=== PATIENT | female | born 1980 | race Caucasian/White ===

== ENCOUNTER 2023-09-21 13:50 | Outpatient (CLI) | payer BC ==
--- NOTE | 2023-09-21 14:29 | SLEEP CARE CONSULTATION ---
Information from patient questionnaire entered by Penelope Rosa. I have reviewed and concur with the information entered by Penelope Rosa. This document represents the service I personally performed and the decisions made by me, Ronald Rosas MD, [facility]. History of Present Illness Service Date and Time: 09/21/2023 1350 Reason for Visit: New patient Chief Complaint: reports: Unrefreshed sleep, Snoring, Excessive daytime sleepiness, Fatigue, Frequent awakenings at night Date of Onset: 2022 Usual bedtime: 7651-3416 Time it takes to fall asleep: 30MINS Snores at night: Yes Observed to quit breathing while asleep: No Sleeps alone due to snoring: No Number of times waking at night: 1-5 Reasons for waking at night: reports: Choking, Bathroom Toss, Turn, or Twitch while sleeping: Yes Recalls having dreams: No Usually gets out of bed at: [id number] Feels refreshed in the morning: No Morning headache: Yes Sleepy or fatigued during the day: Yes Ever fallen asleep while driving: Yes Takes day naps: Yes Dreams during day naps: Yes Prior sleep studies: No Additional HPI information: I have the pleasure of seeing Ms. Roque today regarding the possibility of her having obstructive sleep apnea. As you know, she is a 43-year-old lady who complains of loud snore, frequent awakenings, unrefreshed sleep, persistent fatigue, and excessive daytime sleepiness. The patient tells me that she normally goes to bed around 11 pm - midnight, and it takes her approximately 30 minutes to fall asleep. She has been told that she snores loudly and irregularly at night. She has never been observed to stop breathing in her sleep. Her sleeps in the same bed. He uses a CPAP. She can recall waking up on the average of 1 - 5 times during the night. Most of the time she wakes up because of having to use the bathroom. She has awakened occasionally because of her own snoring, choking, and having to gasp for air. There is a lot of tossing and turning in her sleep. She has somniloquy (sleep talking) but not somnambulism (sleepwalking). Generally, there is no recollection of dreams. In the morning she usually gets up out of the bed around 7 a.m. not feeling refreshed nor rested. She usually has a morning headache. During the day she complains of feeling sleepy and fatigued. Her score on [place] Sleepiness Scale is 15 out of 24. She has fallen asleep while driving and has gone out of the faith. She usually takes naps during the day. She denies having impaired concentration during the day. - Parasomnia Symptoms Ever been unable to move upon waking from sleep: No Walks in sleep: No Talks in sleep: Yes Ever acted out dreams in sleep: Yes Ever felt weak in the knees when startled or emotional: No Bothered by creepy, crawly, restless sensations in legs: No Problems with memory or concentration: No Subjective Initial [place] Sleepiness Scale score: 15 (09/21/23) Past Medical History Past Medical History: reports: GERD Social History The patient's occupation is a [employer]. Patient is and lives in [place]. Have you smoked in the past 12 months: No Alcohol use: Yes Alcohol amount and frequency: 1GLASS 2-3X YRS Caffeine use: Yes Caffeine amount and frequency: 3-5 CANS 4XWEEK Family History Family history of sleep disordered breathing: Yes Family Hx Sleep Apnea: Mother: Sleep apnea - Treated, Father: Snoring, Sleep apnea - Treated, Grandparent: Snoring, Sleep apnea - Treated Allergies and Home Medications Known drug allergies: Yes ( LISTED) Drug allergies reviewed: Yes Home medication list reviewed: Yes Review of Systems Weight gain over past 5 years: 60 Cardiovascular: reports: leg or foot swelling Respiratory: denies: shortness of breath, wheeze, sputum production, chronic cough, other Gastrointestinal: reports: heartburn Urinary: reports: incontinence Neurological: reports: headaches Psychiatric: denies: Attention Deficit Hyperactivity, anxiety, depression, mood disorder, claustrophobia, other Ear/Nose/Throat: denies: nasal congestion, sinus problems, nose bleeds, dry mouth/throat, hoarseness, injury to nose, tonsillectomy, wisdom teeth removed, other Endocrine: denies: thyroid disease, history of goiter, sluggishness, too hot or cold, excessive thirst, increased appetite, increased urination, unexplained weakness, other Musculoskeletal: denies: joint pain, neck pain, back pain, joint swelling, muscle pain or cramping, mobility problems, other Immunologic: denies: sneezing, rash, itching, allergies to food or environment, other Physical Exam Vital signs obtained and entered by: PENELOPE Canales MA Blood Pressure: 163/93 (LEFT ) Cuff size: wrist Heart Rate: 97 O2 Saturation: 96 Height: 5 ft 3 in Weight: 347 lb 3.2 oz Body Mass Index: 61.4 BMI Classification: Morbidly Obese Neck circumference: 20 Mood/affect: Normal HEENT: No craniofacial malformation Nostrils: patent to airflow Turbinates: normal Septum: midline Mouth and throat: narrow oropharynx Soft palate: long Hard palate: normal Uvula: normal Uvula visualization: 0% Mallampati Class IV Tongue: normal in size Tonsils: absent bilaterally Chin and jaw: normal size and position Neck: normal w/o lymphadenopathy or thyromegaly Heart: regular rate and rhythm Lungs: clear bilaterally Extremities: no edema or clubbing Neurologic: intact Impression and Plan IMPRESSION: 1. Obstructive Sleep Apnea-Hypopnea Syndrome, as evident by history of loud and irregular snoring, frequent awakenings during the night, unrefreshed sleep, and daytime hypersomnolence. Narrow oropharynx and obesity are common predisposing factors for obstructive sleep apnea-hypopnea syndrome. I recommend proceeding to polysomnography to confirm the diagnosis and to assess severity. If she has significant sleep disordered breathing, a manual CPAP titration study will also be performed to find the optimal treatment pressure. I informed the patient of what the sleep studies involve and after some discussion, she agreed to proceed. Plan: 1. Schedule in-laboratory polysomnography. 2. Avoid long distance driving or when feeling sleepy. 3. Avoid alcohol, sedative and muscle relaxant around bedtime. 4. Attempt to lose weight. 5. Return for follow up after the sleep study. Counseling Topics: Weight control Follow up with Sleep Care in: 1-2 months Follow up recommended for: Weight management Visit Type: In Office Time Spent with Patient (minutes): 15 Provider Statement: I spent 100% of the Face to Face Visit with the patient with greater than 50% spent counseling the patient and coordination of care.
[2023-09-21 14:31] VITALS: BP 163/93; O2SAT 96
== END 2023-09-21 13:51 | disposition home or self-care (01) ==
LOC: SC 13:50
PROVIDERS: ATTEND Internal Medicine Pulmonary Disease
DX: R06.83 Snoring (principal); G47.10 Hypersomnia, unspecified; G47.8 Other sleep disorders
CPT/HCPCS: 99202; 99212

== ENCOUNTER 2023-10-21 13:52 | Outpatient (CLI) | payer BC | END 2023-10-21 13:53 | disposition home or self-care (01) | LOC: SC 13:52 | PROVIDERS: ATTEND Internal Medicine Pulmonary Disease | DX: G47.33 Obstructive sleep apnea (adult) (pediatric) (principal); R09.02 Hypoxemia; R00.0 Tachycardia, unspecified; E66.01 Morbid (severe) obesity due to excess calories; Z68.44 Body mass index [BMI] 60.0-69.9, adult | CPT/HCPCS: 95806 ==

== ENCOUNTER 2023-11-25 19:37 | Outpatient (CLI) | payer BC | END 2023-11-25 19:38 | disposition home or self-care (01) | LOC: SC 19:37 | PROVIDERS: ATTEND Nurse Practitioner Family | DX: G47.33 Obstructive sleep apnea (adult) (pediatric) (principal); G47.61 Periodic limb movement disorder | CPT/HCPCS: 95811 ==

== ENCOUNTER 2024-01-05 12:51 | Outpatient (CLI) | payer BC ==
--- NOTE | 2024-01-05 13:55 | Sleep Patient Instructions ---
Sleep Center Visit Summary - Patient Visit Information Reason for Visit: First compliance follow-up with CPAP therapy - Patient Instructions Additional Instructions: You were here for follow up of CPAP therapy. You will be continued on CPAP therapy with pressure at 12-17 cmH2O. You should follow up with sleep care in 3 months. You may contact us sooner for any questions or concerns. - Clinic Information Contact: [facility] [address] [place] [id number] [email or web address] T: [phone]
--- NOTE | 2024-01-05 13:59 | SLEEP CARE CONSULTATION ---
Information from patient questionnaire entered by Penelope Rosa. I have reviewed and concur with the information entered by Penelope Rosa. This document represents the service I personally performed and the decisions made by , Milena Willson ARNP. History of Present Illness Service Date and Time: 01/05/2024 1251 Previous diagnosis: Extremely Severe, Obstructive Sleep Apnea-Hypopnea Syndrome AHI: 133.3 (on 11/25/23) Reason for follow up: first compliance Equipment type: CPAP (RESMED Airsense 11, 11/09/23) Equipment obtained from: Other ([facility]; getting supplies) Mask style: Nasal Mask brand: Resmed (AirFit N30i, medium cushion) Backup mask available: No Last cushion change: 2 weeks Prior sleep studies: No Type of Sleep Study: Home sleep study (COMPLETED 10/21/23) HPI additional information: LUPIS KOROMA was diagnosed to have extremely severe, AHI 133.3, obstructive sleep apnea-hypopnea syndrome and returned today for CPAP therapy first compliance follow-up. Sleep Study - Results Type of Sleep Study: Home sleep study (COMPLETED 10/21/23) Prior sleep studies: No CPAP Compliance Data - Data Reviewed with Patient Average duration of nightly device use: 6 HRS 56 MIN Compliance rate %: 93 (11/09/23-12/08/23; 28/30 days used) Current pressure setting (cmH2O): 12-17 (avg 16, max 16.1) Average residual AHI: 7.4 (2.7 in last 30 days using avg 17 cmH2O) Central apnea: 0 Obstructive apnea: 5.2 Hypopnea: 1.2 Average large leak: 1.6 L/min Subjective Missed days of use due to: reports: family emergency Patient concerns: reports: other (ear pressure sometimes). denies: aerophagia, mask discomfort, air blowing in eyes, mask leak noise, condensation in mask/hose, nasal congestion, dry mouth, nose, throat, epistaxis Observed to snore while using device: No Current pressure setting perceived as: comfortable On therapy, patient: reports: sleeping better, awakening more refreshed, being more awake and alert during the day, more rested overall. denies: drowsiness while driving Initial [place] Sleepiness Scale score: 15 (09/21/23) Current [place] Sleepiness Scale score: 0 (01/05/24) Allergies and Home Medications Known drug allergies: Yes (as listed) Drug allergies reviewed: Yes Home medication list reviewed: Yes (no changes) Allergy and home medication list: Allergies codeine Allergy (Verified 01/05/24 13:11) Penicillins Allergy (Verified 01/05/24 13:11) Review of Systems Review of systems same as previous: Yes (NO CHANGE) Physical Exam Vital signs obtained and entered by: PENELOPE Canales MA Blood Pressure: 139/91 (LEFT ARM) Cuff size: long Heart Rate: 85 O2 Saturation: 97 Height: 5 ft 3 in Weight: 343 lb Weight change since last visit: 11 lb loss Body Mass Index: 60.7 BMI Classification: Morbidly Obese Impression and Plan 1. Obstructive Sleep Apnea-Hypopnea Syndrome, extremely severe, with good treatment compliance and good apnea control. On CPAP therapy, the patient has better sleep quality and is more rested overall. She has significant improvement of her sleep apnea and is happy with her CPAP therapy. She states she has lost weight, is not falling asleep all the time and is feeling energetic during the day. Patient's apnea severity and rationale for treatment to reduce apnea, improve sleep quality and reduce cardiovascular and cerebrovascular events was reviewed. I also reviewed the benefit of consistent device use of CPAP for hypertension, gastric reflux. 2. Obesity, unspecified. Currently patients BMI is 60.7. She has lost 11 pounds since her last visit. Obesity increases the risk of apnea, CPAP pressure requirements and overall health risks especially cardiovascular and diabetes. Thus patient is advised to continue to try to lose weight. * Continue auto CPAP pressure at 12-17 cmH2O * Notify me if snoring with mask or feeling that the pressure is too much or too little * Attempt to lose weight * Call this office if any problems using CPAP * Return for follow up in 3 months, or sooner if concerns arise Continue with device pressure at (cmH2O): 12-17 Counseling Topics: Spare mask, Weight loss health impact Follow up with Sleep Care in: 3 months Visit Type: In Office Time Spent with Patient (minutes): 20 Provider Statement: I spent 100% of the Face to Face Visit with the patient with greater than 50% spent counseling the patient and coordination of care.
[2024-01-05 14:09] VITALS: BP 139/91; O2SAT 97
== END 2024-01-05 12:52 | disposition home or self-care (01) ==
LOC: SC 12:51
PROVIDERS: ATTEND Nurse Practitioner Family
DX: G47.33 Obstructive sleep apnea (adult) (pediatric) (principal); E66.01 Morbid (severe) obesity due to excess calories; Z68.44 Body mass index [BMI] 60.0-69.9, adult
CPT/HCPCS: 99212; 99213